=== PATIENT | female | born 1970 | race Caucasian/White ===

== ENCOUNTER 2023-09-30 13:14 | Emergency (ER) | payer OTHER, SELFPAY ==
[2023-09-30 13:20] VITALS: BP 130/86
[2023-09-30 13:43] LABS: % Basophils 0.3 % (0-2); % Eosinophils 0.3 % (0-6); % Immature Granulocytes 0.4 % (0-0.5); % Lymphocytes 14.6 % (20.5-51.1); % Monocytes 2.2 % (1.7-9.3); % Neutrophils 82.2 % (42.2-75.2); Absolute Lymphocytes 1.6 10^3/uL (1.2-3.4); Absolute Monocytes 0.3 10^3/uL (0.1-0.6); Absolute Neutrophils 9.2 10^3/uL (1.4-6.5); Hematocrit 37.4 % (37.0-47.0); Hemoglobin 13.1 g/dL (12.0-16.0); Mean Corpuscular Hgb 30.5 pg (27.0-31.0); Mean Platelet Volume 9.7 fL (7.4-10.4); Nucleated Red Blood Cells % 0 %; Platelet Count 268 10^3/uL (130-400); Red Cell Dist. Width 12.5 % (11.5-14.5); White Blood Cell Count 11.2 10^3/uL (4.8-10.8)
[2023-09-30 13:59] LABS: ALT (SGPT) 19 U/L (0-35); AST (SGOT) 28 U/L (14-36); Albumin 4.9 g/dl (3.5-5.0); Alkaline Phosphatase 80 U/L (38-126); Blood Urea Nitrogen 13 mg/dl (7-17); Calcium 10.5 mg/dl (8.4-10.2); Carbon Dioxide 27 mmol/L (22-30); Chloride 106 mmol/L (98-107); Glucose 114 mg/dl (70-99); Lipase 159 U/L (23-300); Potassium 3.9 mmol/L (3.5-5.1); Sodium 138 mmol/L (135-145); Total Bilirubin 0.5 mg/dl (0.2-1.3); Total Protein 7.8 g/dl (6.3-8.2); eGFR > 60.00
[2023-09-30 14:05] LABS: Alcohol None Detected
--- NOTE | 2023-09-30 15:32 | ED.GENMED ---
History of Present Illness
<Terry Carmichael PA-C - Last Filed: 09/30/23 15:37>
General
Chief Complaint: Abdominal Symptoms
Source: patient
Time Seen by Provider: 09/30/23 15:16
Travel History
Have you had any contact with someone who has COVID-19?: No
Do you have any symptoms of coronavirus? Fever > 100 degrees, chills, cough, shortness of breath, sore throat, loss of taste or smell, muscle aches, or headache?: No
History of Present Illness
History of Present Illness:
53-year-old female with past medical history of migraines, GERD, previous alcohol use presenting to the emergency department for evaluation of nausea vomiting and diarrhea that started earlier today, while having an episode of vomiting and sitting
on the ground patient believes she syncopized striking the right side of her head against the toilet now noting a small bruise and edema over the affected area. Patient states that she has not had any abdominal pain associated with this and
continues without any pain. She does admit to a mild headache. She denies any fevers, chills, rigors, urinary symptoms, chest pain, shortness of breath or any other concerns. Patient denies any alcohol use. Of note, patient was prescribed
Augmentin 2 weeks ago by dentist for a suspected tooth infection, small her dentist and a follow-up visit a week ago who states that she did not have an infection and she can discontinue the Augmentin yesterday developed the pain again in her tooth
1 dose of the Augmentin and is not sure if this is related.
Past History
<Terry Carmichael PA-C - Last Filed: 09/30/23 15:37>
Past History
ED Past Medical History: GERD and Other (Migraines)
ED Past Surgical History: Other (Cervical cancer surgery)
Patient has exhibited threatening behavior?: No
PSI?: No
Social History
Tobacco: Smoker
Alcohol: Former
Drug: None
Personal: Single
Living: with family
Employment: Employed
Review of Systems
<Terry Carmichael PA-C - Last Filed: 09/30/23 15:37>
Review of Systems
All Other Systems: ROS reviewed and negative except as documented in HPI and ROS
Phy Exam
<Terry Carmichael PA-C - Last Filed: 09/30/23 15:37>
Physical Exam
Physical Exam:
GENERAL: Alert , in no apparent distress
EYE: conjunctiva clear, small area of ecchymosis along the left orbit with tenderness from fall extraocular movements are intact pupils 4 mm bilateral
NECK: Supple
ENT: o/p clr, mmm.
CARDIAC: Regular rate and rhythm
LUNGS: Clear breath sounds bilaterally, no acute respiratory distress, no wheezes/rales/rhonchi
Abdomen: Soft, nontender, nondistended
NEUROLOGICAL: Alert and oriented
SKIN: Warm and dry, skin intact.
MUSCULOSKELETAL: well perfused.
PSYCH: Normal and appropriate interaction.
Scores
<Terry Carmichael PA-C - Last Filed: 09/30/23 15:37>
Heart Failure Risk
Heart Failure Risk Score: Not Applicable
Heart Score for Chest Pain Patients
STEMI patient?: Not applicable
Withdrawal Assessment of Alcohol
Withdrawal Assessment Completed?: Not applicable
Course
<Terry Carmichael PA-C - Last Filed: 09/30/23 15:37>
Orders/Labs/Results
Orders:
Orders
09/30/23 13:24
Electrocardiogram (*1) Urgent
Reason for Study: Syncope
EKG- Treatment ONCE
09/30/23 13:34
Alcohol Urgent
Complete Blood Count/With Diff Urgent
Comprehensive Metabolic Panel Urgent
Lipase Urgent
09/30/23 15:25
0.9% Sodium Chloride 1000 ml [Nss] 1,000 ml IV BOLUS
Diphenhydramine [Benadryl] 25 mg IV NOW STA
Metoclopramide [Reglan] 10 mg IV NOW STA
09/30/23 15:58
CT Head W/o Iv Contrast Urgent
Comment:
Reason For Exam: syncope, head injury
09/30/23 18:44
Acetaminophen 1000MG/100Ml [Ofirmev] 1,000 mg in 100 ml IV ONCE
Acetaminophen IV Indication:: ED Narcotic Naive Pt-ONCE
Abnormal Lab Results
09/30/23
13:34
WBC 11.2 H 10^3/uL
(4.8-10.8)
Absolute Neuts (auto) 9.2 H 10^3/uL
(1.4-6.5)
Neutrophils % 82.2 H %
(42.2-75.2)
Lymphocytes % 14.6 L %
(20.5-51.1)
Glucose 114 H mg/dl
(70-99)
Calcium 10.5 H mg/dl
(8.4-10.2)
09/30/23 13:34
09/30/23 13:34
Vital Signs
Initial and Last Documented VS:
Initial Vital Signs
Temp Pulse Resp BP Pulse Ox
97.7 F 59 16 130/86 100
09/30/23 13:20 09/30/23 13:20 09/30/23 13:20 09/30/23 13:20 09/30/23 13:20
Last Documented Vital Signs
Temp Pulse Resp BP Pulse Ox
98.4 F 64 16 128/74 97
09/30/23 20:38 09/30/23 20:38 09/30/23 20:38 09/30/23 20:38 09/30/23 20:38
<MIRNA Cruz - Last Filed: 10/01/23 01:28>
Orders/Labs/Results
Orders:
Orders
09/30/23 13:24
Electrocardiogram (*1) Urgent
Reason for Study: Syncope
EKG- Treatment ONCE
09/30/23 13:34
Alcohol Urgent
Complete Blood Count/With Diff Urgent
Comprehensive Metabolic Panel Urgent
Lipase Urgent
09/30/23 15:25
0.9% Sodium Chloride 1000 ml [Nss] 1,000 ml IV BOLUS
Diphenhydramine [Benadryl] 25 mg IV NOW STA
Metoclopramide [Reglan] 10 mg IV NOW STA
09/30/23 15:58
CT Head W/o Iv Contrast Urgent
Comment:
Reason For Exam: syncope, head injury
09/30/23 18:44
Acetaminophen 1000MG/100Ml [Ofirmev] 1,000 mg in 100 ml IV ONCE
Acetaminophen IV Indication:: ED Narcotic Naive Pt-ONCE
Abnormal Lab Results
09/30/23
13:34
WBC 11.2 H 10^3/uL
(4.8-10.8)
Absolute Neuts (auto) 9.2 H 10^3/uL
(1.4-6.5)
Neutrophils % 82.2 H %
(42.2-75.2)
Lymphocytes % 14.6 L %
(20.5-51.1)
Glucose 114 H mg/dl
(70-99)
Calcium 10.5 H mg/dl
(8.4-10.2)
09/30/23 13:34
09/30/23 13:34
Vital Signs
Initial and Last Documented VS:
Initial Vital Signs
Temp Pulse Resp BP Pulse Ox
97.7 F 59 16 130/86 100
09/30/23 13:20 09/30/23 13:20 09/30/23 13:20 09/30/23 13:20 09/30/23 13:20
Last Documented Vital Signs
Temp Pulse Resp BP Pulse Ox
98.4 F 64 16 128/74 97
09/30/23 20:38 09/30/23 20:38 09/30/23 20:38 09/30/23 20:38 09/30/23 20:38
<Terry Carmichael PA-C - Last Filed: 09/30/23 15:37>
MDM/Problems Addressed
Differential Diagnosis Includes:
Gastroenteritis, medication side effect, vasovagal syncope, orthostasis, electrolyte derangement
MDM/Problems Addressed:
53-year-old female presenting to the emergency department for evaluation of nausea vomiting diarrhea that started today, had a syncopal episode during an episode of vomitus which I suspect is likely vasovagal or orthostasis. Hemodynamically stable
here. Mild leukocytosis which could be reactive from vomiting. Will treat with Reglan and Benadryl given patient's reported headache and continued nausea. Reassessment following.
<MIRNA Cruz - Last Filed: 10/01/23 01:28>
MDM/Problems Addressed
MDM/Problems Addressed:
53-year-old female presenting to the emergency department for evaluation of nausea vomiting diarrhea that started today, had a syncopal episode during an episode of vomitus which I suspect is likely vasovagal or orthostasis. Hemodynamically stable
here. Mild leukocytosis which could be reactive from vomiting. Will treat with Reglan and Benadryl given patient's reported headache and continued nausea. Reassessment following.
1843: Received signout on patient. Patient had CAT scan report pending at this time. Patient still complains of headache asking for something for discomfort. She is awake alert and in no acute distress no nausea vomiting. She is allergic to
ibuprofen. Will give Ofirmev
2021: Patient feeling much better drinking fluids
<Terry Carmichael PA-C - Last Filed: 09/30/23 15:37>
*Pulse Oximetry
Patient hypoxic: no
<MIRNA Cruz - Last Filed: 10/01/23 01:28>
*Critical Care Note
Total Time (30-74mins, 75-104mins- exclusive of procedures): Not Applicable
ED Attending Note
<Terry Carmichael PA-C - Last Filed: 09/30/23 15:37>
-
Portions of this chart may have been created with voice recognition software.� Occasional wrong word or��sound alike� substitutions may have occurred due to the inherent limitations of voice recognition software.
Discharge Plan
Departure
Patient Disposition: Home (Routine Discharge)
Date of Disposition: 09/30/23
Time of Disposition: 20:23
Patient with high blood pressure during this ER visit?: Yes
Condition: Fair
Covid-19: Not Applicable
Discharge Problem:
Nausea & vomiting, Syncope
Instructions: Nausea and Vomiting, Adult (DC), Syncope (Fainting) (DC)
Prescriptions:
New
ondansetron 4 mg tablet,disintegrating
4 mg PO Q8H PRN (Reason: nausea and vomiting) Qty: 10 0RF
No Action
lamotrigine [Lamictal XR] 200 MG tablet extended release 24hr
150 mg PO BID
Acid [facility]
1 cap PO BID
fluticasone propionate 1 SPRAY spray,suspension
1 spray intranasal DAILY
docosahexaenoic acid-epa 1 CAP capsule
1 cap PO DAILY
mv-mn-iron [id number],9#3 [Women's Multi] 1 EACH capsule
1 ea PO DAILY
FOLic ACID
1 tab PO DAILY
Glucosamine
1 tab PO BID
melatonin 3 MG tablet
6 mg PO
diazepam [Valium] 10 MG tablet
10 mg PO TID PRN (Reason: pain or spasm) Qty: 10 0RF
Referrals:
Eliseo Dawkins MD [Family Provider] -
Activity Restrictions/Additional Instructions:
Clear fluids for the next 24 hours followed by bland solids foods. A prescription for Zofran, nausea medicine was sent to your pharmacy take as directed.
Return if any worsening of symptoms. Follow-up with your family doctor next several days.
Interventions
Interventions:
*Risk Screen - Suicide Last Done: 09/30/23 20:37
*General Assessment Last Done: 09/30/23 20:37
*Neglect/Abuse Screening Last Done: 09/30/23 20:37
ED- Fall Risk Assessment Last Done: 09/30/23 20:38
*ED COVID-19 Vaccine History Last Done: 09/30/23 13:20
*Nursing Disposition Last Done: 09/30/23 20:38
XB-[facility]abk[facility]zsm[facility] Assessment Last Done: 09/30/23 18:57
Discharge Date and Time
Discharge Date/Time: 09/30/23 20:41
Print Language: PERUVIAN
[2023-09-30] MEDS: NSS 1000 IV (15:50)
[2023-09-30] MEDS: REGLAN 10 MG IV (15:51)
[2023-09-30] MEDS: BENADRYL 25 MG IV (15:51)
[2023-09-30 15:55] VITALS: BP 144/90
[2023-09-30 15:56] VITALS: BMI 25.4
[2023-09-30] MEDS: OFIRMEV 100 IV (18:50)
[2023-09-30 20:38] VITALS: BP 128/74
== END 2023-09-30 20:41 | disposition home or self-care (01) ==
LOC: EMR 13:14
PROVIDERS: Emergency Medicine; EMERGENCY PHYSICIAN Emergency Medicine; FAMILY PHYSICIAN Family Medicine
DX: R55 Syncope and collapse (principal); R11.2 Nausea with vomiting, unspecified; R19.7 Diarrhea, unspecified; R60.9 Edema, unspecified; R03.0 Elevated blood-pressure reading, without diagnosis of hypertension; S09.90XA Unspecified injury of head, initial encounter; X58.XXXA Exposure to other specified factors, initial encounter; F17.200 Nicotine dependence, unspecified, uncomplicated; Z88.6 Allergy status to analgesic agent; Z85.41 Personal history of malignant neoplasm of cervix uteri
CPT/HCPCS: 99285; 96374; 96375 ×2; 96361; 70450; 80053; 82077; 83690; 85025; 93005

== ENCOUNTER → 2023-10-19 15:09 | Outpatient (REF) | payer OTHER, SELFPAY | LOC: HWRAD 15:09 | PROVIDERS: ATTENDING PHYSICIAN Nurse Practitioner Family; FAMILY PHYSICIAN Family Medicine | DX: R51.9 Headache, unspecified (principal) | CPT/HCPCS: 70450 ==

== ENCOUNTER → 2023-12-20 15:22 | Outpatient (REF) | payer OTHER, SELFPAY | LOC: WDC 15:22 | PROVIDERS: ATTENDING PHYSICIAN Family Medicine | DX: Z12.31 Encounter for screening mammogram for malignant neoplasm of breast (principal) | CPT/HCPCS: 77063; 77067 ==

== ENCOUNTER → 2025-01-21 15:44 | Outpatient (REF) | payer OTHER, SELFPAY | LOC: WDC 15:44 | PROVIDERS: ATTENDING PHYSICIAN Nurse Practitioner Family | DX: Z12.31 Encounter for screening mammogram for malignant neoplasm of breast (principal) | CPT/HCPCS: 77063; 77067 ==